=== PATIENT | male | born 1950 ===

== ENCOUNTER → 2017-06-06 | Day surgery (SDC) | payer OTHER ==
[2017-05-30 09:10] VITALS: Ht 182.9 cm; Wt 84.1 kg
[~2017-06-06] VITALS: Ht 182.9 cm; Wt 84.1 kg
[~2017-06-06] MED LIST: ASPI81TA28 PO; ATROPINE SULFATE 0.1 MG/ML 5ML SYR IV PRN; BLACK CHERRY PO; BUPIVACAINE/EPINEPHRINE 0.5% MPF 1:200,000 10 ML VIAL ONE; CEFAZOLIN 2000 MG/60 ML D5W IV SCH; DEXAMETHASONE SOD INJ 4 MG/ML VIAL ONE; EpHEDrine SULFATE INJ 50 MG/ML AMP IV PRN; FENTANYL CITRATE INJ 50 MCG/1 ML 2 ML VIAL ONE; FLUMAZENIL 0.1 MG/1 ML 10 ML VIAL IV PRN; GLC/500 PO; HYDROmorphone INJ 1 MG/ML SYR IV PRN; LABETALOL HCL IV 5 MG/ML 20ML IV PRN; LACTATED RINGER'S 1000ML 1,000 ML IV SCH; LEVO175T3 PO; LIDOCAINE HCL 2% 2 ML VIAL (20MG/ML) ONE; LISI-729 PO; MIDAZOLAM HCL 1 MG/ML 2ML VIAL ONE; NALOXONE HCL 0.4 MG/1 ML VIAL/CARP IV PRN; OMEG10007 PO; ONDANSETRON INJ 2 MG/ML 2 ML VIAL IV PRN; ONDANSETRON INJ 2 MG/ML 2 ML VIAL ONE; OXYC-57 PO; OXYCODONE/ACETAMINOPHEN 5-325 TAB PO PRN; PANT40TA PO; PROMETHAZINE HCL INJ 12.5 MG in SODIUM CHLORIDE 0.9% 50ML 50 ML IV PRN; PROPOFOL IV EMULSION 10 MG/ML 20 ML VIAL IV ONE; SIMV40TA2 PO; SODIUM CHLORIDE 0.9% 1000ML 1,000 ML IV SCH
--- NOTE | 2017-06-06 06:54 | History & Physical Bridge - [place] ---
H&P Re-Evaluation Bridge Note: I have examined the patient, reviewed the History & Physical and in the interval since the performance of the History & Physical I have noted the following changes of clinical significance: No changes noted
--- NOTE | 2017-06-06 07:43 | [facility] Post Operative Brief Note ---
Immediate Operative Summary Operative Date Jun 06, 2017. Pre-Operative Diagnosis Painful right hip hardware post hip fracture Post-Operative Diagnosis Same as preop Procedure(s) Performed Right Femur Painful Hardware Removal Surgeon Dr. Morel Hot Head Machine Operator Surgeon(s) Tigre Mancini PA-C Estimated Blood Loss Minimal Findings Hardware Right Hip Specimens None Anesthesia General Complication(s) None Disposition Recovery Room / PACU
--- NOTE | 2017-06-06 07:48 | Discharge Instructions ---
Discharge Instructions Date of Service Jun 06, 2017. Visit Reason for Visit: Hip Pain, Pain D/T Device, Implant, &/Or Graft Discharge Discharge Diagnosis / Problem: Hardware removal right hip Discharge Goals Goal(s): Decrease discomfort, Improve function, Therapeutic intervention Medications Stopped Medications Name(s): Pt. stopped Metformin x 2 days - was told not to take Lisinopril this a.m.. Activity Recommendations Activity Limitations: per Instructions/Follow-up section Exercise/Sports Limitations: gradually increase as tolerated May Resume Sexual Activity: when tolerated Shower/Bathe: keep incision dry Driving or Machine Use: resume 1 day after discharge Weightbearing Status: Right weightbearing Anesthesia . Post Anesthesia Instructions: If you have had General Anesthesia or IV Sedation: * Do not drive today. * Resume driving when surgeon permits. * Do not make important decisions or sign legal documents today. * Call surgeon for: 1. Temperature elevations greater than 101 degrees F. 2. Uncontrollable pain. 3. Excessive bleeding. 4. Persistent nausea and vomiting. 5. Medication intolerance (nausea, vomiting or rash). * For nausea and vomiting use only clear liquids such as: tea, soda, bouillon until nausea subsides, then gradually increase diet as tolerated. * If you have any concerns or questions, call your surgeon's office. If physician is unavailable and it is an emergency, call 911 or go to the nearest emergency room. . Instructions / Follow-Up Instructions / Follow-Up Activity as tolerated May change dressing in 2-3 days and replace with dry dressing. Diet Recommendations Recommended Home Diet: diabetes diet Procedures Procedures Performed: Right Femur Painful Hardware Removal Pending Studies Studies pending at discharge: no Medical Emergencies . Who to Call and When: Medical Emergencies: If at any time you feel your situation is an emergency, please call 911 immediately. . Non-Emergent Contact Non-Emergency issues call your: Surgeon . . "Provider Documentation" section prepared by Kamar Morel. .
[2017-06-06 08:25] VITALS: TEMP 36.3
--- NOTE | 2017-06-06 08:43 | Anesthesia Progress Nt - [facility] ---
Anesthesia Post Op Note Date & Time Jun 06, 2017 at 08:43 Vital Signs Pain Intensity: 0 Vital Signs Past 12 Hours Date Time Temp Pulse Resp B/P (MAP) Pulse Ox O2 Delivery O2 Flow Rate FiO2 06/06/17 08:25 36.3 58 16 149/89 (109) 98 Room Air 06/06/17 08:18 36.4 60 16 128/79 97 Room Air 06/06/17 08:17 62 9 06/06/17 08:17 63 9 96 06/06/17 08:16 128/79 06/06/17 08:12 65 15 06/06/17 08:12 66 15 95 06/06/17 08:11 141/85 06/06/17 08:07 70 16 06/06/17 08:07 69 16 119/62 98 06/06/17 08:02 63 16 98 06/06/17 08:02 64 16 06/06/17 08:01 65 16 131/72 98 06/06/17 08:01 64 16 06/06/17 07:56 57 11 103/62 96 06/06/17 07:56 57 11 06/06/17 07:51 58 11 06/06/17 07:51 59 11 96 06/06/17 07:51 58 11 06/06/17 07:51 59 11 110/61 96 06/06/17 07:47 109/60 06/06/17 07:47 109/60 06/06/17 07:46 36.4 60 12 109/60 98 Diffusion Mask 6 06/06/17 06:44 36 60 16 150/89 (109) 98 Room Air Notes Mental Status: alert / awake / arousable, participated in evaluation Pt Amnestic to Procedure: Yes Nausea / Vomiting: adequately controlled Pain: adequately controlled Airway Patency, RR, SpO2: stable & adequate BP & HR: stable & adequate Hydration State: stable & adequate Anesthetic Complications: no major complications apparent
[2017-06-06 09:03] VITALS: BP 150/82; PULSE 58; O2SAT 96
--- NOTE | 2017-06-06 09:36 | OPERATIVE REPORT ---
DATE OF OPERATION: 06/06/2017 PREOPERATIVE DIAGNOSIS: Symptomatic hardware right hip, status post cannulated screw fixation of a femoral neck fracture. POSTOPERATIVE DIAGNOSIS: Same. PROCEDURE: Hardware removal, right hip fracture. SURGEON: Kamar Morel M.D. BLOOD BANK COORDINATOR: Hakan Mancini PA-C. COMPLICATIONS: None. ESTIMATED BLOOD LOSS: Minimal. ANESTHESIA: General. SPECIMENS: None. OPERATIVE INDICATIONS: The patient is a 66-year-old very active gentleman who is about 14 months out from cannulated screw fixation of a nondisplaced femoral neck fracture done in the [facility]. He has done pretty well from this, but continued to have some intermittent groin pain and catching. He had a CT scan which showed the fracture to be healed but there was concern about the inferior screw being prominent and sticking out the neck. We discussed treatment options. He elected to proceed with hardware removal. We made it clear to him that this may or may not help him and unfortunately the only way to determine this would be to be take the screw out. He has elected to proceed along this course. OPERATIVE PROCEDURE: The patient taken to the operating room, identified and placed on the operating table in supine position. All contact areas were appropriately padded. IV antibiotics were provided by anesthesia team. General anesthetic was implemented by anesthesia team. X-ray was brought in to make sure we could get adequate radiographs. The right hip and leg were then prepped and draped in the usual sterile fashion. Under fluoroscopic guidance, I made a small about 1 cm incision over the lateral aspect of the thigh in direct line of the screw. Blunt dissection was carried down through the subcutaneous tissues. I then placed a guidewire under fluoroscopic guidance through the cannulated portion of the screw. I then placed a screwdriver over the guidewire and was able to back the screw out without difficulty. The screw was removed. Some final x-rays were obtained. Attention was then drawn toward closing. The wound was irrigated with copious amounts of normal saline. I did inject locally with 30 mL of 0.5% Marcaine with epinephrine. The subcutaneous tissues were then closed with 3-0 Vicryl suture in a buried interrupted fashion. The skin was closed with 3-0 nylon suture in a simple fashion. The leg was then cleaned and dried and a sterile dressing of Xeroform, 4 x 4's, and Tegaderm dressing/OpSite were applied. The patient then brought out of general anesthesia and transferred to the recovery room in stable condition. The patient tolerated the procedure well with no complications. All needle and sponge counts were correct at the end of the operation. I attest to the content of the Intraoperative Record and any orders documented therein. Any exception s are noted below.
== END | disposition home or self-care (01) ==
LOC: X.SURG 06:22
PROVIDERS: ATTEND Orthopaedic Surgery Sports Medicine
DX: Z47.2 Encounter for removal of internal fixation device (principal); I10 Essential (primary) hypertension; E11.9 Type 2 diabetes mellitus without complications